=== PATIENT | female | born 1945 | race Caucasian/White ===

== ENCOUNTER 2019-01-28 13:00 | Outpatient (RCR) | payer OTHER, SELFPAY ==
--- NOTE | 2018-12-16 10:42 | PT.OIE ---
Current Diagnoses Other female genital prolapse (12/10/18) Full incontinence of feces (12/10/18) Provider Visit Care Team Role Provider Type Graciela Bales PA-C Primary Care Provider Non-Staff Specialty: Medical Address: [facility] [address], [place], [address] Email: Lona Tomas MD Attending Provider Physician Specialty: [employer] Address: [address] [place] [address] [address], [address] Email: [email or web address] Physical Therapy Initial Evaluation PT-OP-A Visit Information Start: 12/10/18 12:24 Freq: Status: Active Protocol: Document 12/10/18 12:15 [facility] (Rec: 12/11/18 14:28 [facility] [email or web address]) Out-Patient Physical Therapy Visit Information Visit Information Visit Type Initial Evaluation Visit Note 73 year old female with fecal incontinence and pelvic relaxation Visit Start Time 12:15 Visit Stop Time 13:00 Total Visit Minutes 45 Visit Number 1 Evaluation Information Evaluation Date 12/10/18 PT-OP-B Current Condition Start: 12/10/18 12:24 Freq: Status: Active Protocol: Document 12/10/18 12:24 [facility] (Rec: 12/10/18 12:40 [facility] [id number]) Current Condition History of Current Condition Onset Date last couple of years sx began History of Current Condition Fecal leakage only when stool is soft. The stool becomes the texture of pudding then she has difficulty. She takes physillium 1/4 teaspoon per day right now. At this consistency when she wipes there is stool . Wears a panty liner all the time for this. Changes her panty liner when she is changing her panty liner two times per day. Cant always feel when she is leaking. Does have urge to have a bowel movement. Feels some pressure from the rectum at times but she does have a pessary that really helps. She started using the pessary two years ago. She takes it out two time per week when using estrogen cream. Had pelvic floor surgery in 2006 PT-OP-I Pelvic Floor Start: 12/10/18 12:24 Freq: Status: Active Protocol: Document 12/10/18 12:15 [facility] (Rec: 12/11/18 14:28 [facility] [email or web address]) Pelvic Floor Assessment Urine Pelvic Floor Surgery Yes Bowel Bowel Surgery Yes Bowel Symptoms Fecal Leakage Bowel Movement Frequency 3 times per day [place] Stool Chart Comments stool is described as pudding consistency Pelvic Clock Pelvic Clock 6-9 Atrophy Pelvic Clock 9-12 Atrophy Inter-Rectal Assessment able to elicite a contraction of the rectal sphincter Prolapse Urethrocele Grade 2 Contraction Ability Voluntary Contraction Moderate Manual Muscle Testing Left 3 Manual Muscle Testing Right 3 Manual Muscle Testing Anterior 3 Manual Muscle Testing Posterior 3 Muscle Endurance (Seconds) 5 PT-OP-M Strength Start: 12/16/18 10:40 Freq: Status: Active Protocol: Document 12/10/18 12:15 [facility] (Rec: 12/16/18 10:42 [facility] [email or web address]) Hip Strength Hip Manual Muscle Testing Right Extension (S1) 3 Fair Abduction 3 Fair External Rotation 3 Fair Left Extension (S1) 3 Fair Abduction 3 Fair External Rotation 3 Fair Comments difficulty performing a functional squat PT-OP-Q Treatments Start: 12/10/18 12:24 Freq: Status: Active Protocol: Document 12/10/18 12:15 [facility] (Rec: 12/11/18 14:28 [facility] [email or web address]) Therapeutic Exercises Supine Exercises 3 Supine Exercise Name roll outs with theraband 2 Supine Exercise Name bridges Reps/Minutes 3 x 10 reps 1 Supine Exercise Name pelvic floor long holds Reps/Minutes 3 x 10 reps 10 second hold 10 second relaxation Sidelying Exercises 1 Sidelying Exercise Name sidelying clam shell exercise Side bilateral Reps/Minutes 3 x 10 reps Self-Care/Home Management Treatment Education Patient Education Home Exercise Program Other Education pt was educated on the use of a squatty potty to help assist with bowel movements PT-OP-T Assessment and Plan Start: 12/10/18 12:24 Freq: Status: Active Protocol: Document 12/10/18 12:15 [facility] (Rec: 12/11/18 14:28 [facility] [email or web address]) Physical Therapy Assessment Goals Four Impairment Decreased strength of the gluteals musculature 3/5 MMT Dope Sprayer Goal (LTG) Improve functional strength of the gluteal muscular for improved support of the pelvis and posterior pelvic floor. Tere is able to perform a functional squat without use of hands and good form LTG Duration 8 weeks Three Impairment Decreased strength of the pelvic floor 3/5 MMT Pen[facility]iary Goal (LTG) Improve pelvic floor strength to 4/5 MMT or better for improved support of the rectum LTG Duration 8 weeks Two Impairment Decreased endurance of the pelvic floor currently 5 second hold time Short Term Goal (STG) Improve pelvic floor hold time from 5 seconds to 10 seconds in supine Dope Sprayer Goal (LTG) Tere is able to improve her endurance of the pelvic floor to 10 second hold time in standing positions One Impairment stool incontinence with pelvic floor weakness Short Term Goal (STG) Tere is educated on toileting mechanics to assist in fully emptying her bowels. STG Duration 4 weeks Penitentiary Goal (LTG) Tere reports decreased c/o stool incontinence and she reports decreased or eliminated stool leakage overall. LTG Duration 8 weeks Assessment Summary Assessment Tere is a 73 year old female with c/o stool incontinence that is intermittent in nature depending on the consistency of her stool. 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 She reports her fecal symptoms have progressed in the past year. She describes her stool as often pudding like in consistency making it difficult to fully empty her bowels. She is using phyllium to assist her in improving the formation of her stool. Her leakage can vary in severity depending on the consistency of her stool. She wears mini pads daily for protection as she can not feel when she is going to leak. She does report the feeling of pelvic pressure and heavyness from the rectum. With examination today she is weak in the gluteal musculature and hips. She is able to facilitate her pelvic floor but is weak in all parts of the levator ani and lacks good endurance of her pelvic floor . A rectal examination was performed and Tere presents with good sensation in the rectum and the sphincter as well as is able to facilitate a sphincter contraction. Tere would benefit from a strengthening program including her gluteals and hip muscles and endurance training for her pelvic floor. I also talked with her today about bowel movements using a squatty potty as this may help align her bowels better for defecation. She has a high co pay and is hoping to do a few visits in PT focusing on a home exercise program. I am happy to work with her on a home program. Physical Therapy Plan Frequency and Duration Frequency of Treatment 1x/Week Duration of Treatment 8 weeks Plan of Care Start Date 12/10/18 Plan of Care End Date 02/04/19 Therapeutic Interventions Therapeutic Interventions Home Exercise Program Patient/Caregiver Education Self-Care/Home Management Soft Tissue Mobilization Therapeutic Exercises Modalities Biofeedback Next Visit Focus/Plan Next Note Type Treatment Note Next Visit Plan Review established exercises and begin working on hip stabilization
--- NOTE | 2018-12-18 10:30 | PT.OTN ---
Current Diagnoses Other female genital prolapse (12/17/18) Full incontinence of feces (12/17/18) Physical Therapy Treatment Note PT-OP-A Visit Information Start: 12/10/18 12:24 Freq: Status: Active Protocol: Document 12/17/18 11:30 [facility] (Rec: 12/18/18 10:30 [facility] [id number]) Out-Patient Physical Therapy Visit Information Visit Information Visit Type Treatment Note Visit Start Time 11:30 Visit Stop Time 12:15 Total Visit Minutes 45 Visit Number 2 Evaluation Information Evaluation Date 12/10/18 PT-OP-B Current Condition Start: 12/10/18 12:24 Freq: Status: Active Protocol: Document 12/10/18 12:24 [facility] (Rec: 12/10/18 12:40 [facility] [id number]) Current Condition History of Current Condition Onset Date last couple of years sx began History of Current Condition Fecal leakage only when stool is soft. The stool becomes the texture of pudding then she has difficulty. She takes physillium 1/4 teaspoon per day right now. At this consistency when she wipes there is stool . Wears a panty liner all the time for this. Changes her panty liner when she is changing her panty liner two times per day. Cant always feel when she is leaking. Does have urge to have a bowel movement. Feels some pressure from the rectum at times but she does have a pessary that really helps. She started using the pessary two years ago. She takes it out two time per week when using estrogen cream. Had pelvic floor surgery in 2006 PT-OP-C Subjective Start: 12/17/18 11:36 Freq: Status: Active Protocol: Document 12/17/18 11:37 [facility] (Rec: 12/17/18 11:39 [facility] [id number]) OP-PT Subjective Patient Comments Patient Comments Pt was started on cipro for a UTI, the next day had a bowel impaction problem and then had a bad attack of diverticulosis. She has been on soft food for the past couple of days and now constipated again. Woke up with cramping Patient Reported Progress Same PT-OP-I Pelvic Floor Start: 12/10/18 12:24 Freq: Status: Active Protocol: Document 12/10/18 12:15 [facility] (Rec: 12/11/18 14:28 [facility] [email or web address]) Pelvic Floor Assessment Urine Pelvic Floor Surgery Yes Bowel Bowel Surgery Yes Bowel Symptoms Fecal Leakage Bowel Movement Frequency 3 times per day [place] Stool Chart Comments stool is described as pudding consistency Pelvic Clock Pelvic Clock 6-9 Atrophy Pelvic Clock 9-12 Atrophy Inter-Rectal Assessment able to elicite a contraction of the rectal sphincter Prolapse Urethrocele Grade 2 Contraction Ability Voluntary Contraction Moderate Manual Muscle Testing Left 3 Manual Muscle Testing Right 3 Manual Muscle Testing Anterior 3 Manual Muscle Testing Posterior 3 Muscle Endurance (Seconds) 5 PT-OP-M Strength Start: 12/16/18 10:40 Freq: Status: Active Protocol: Document 12/10/18 12:15 [facility] (Rec: 12/16/18 10:42 [facility] [email or web address]) Hip Strength Hip Manual Muscle Testing Right Extension (S1) 3 Fair Abduction 3 Fair External Rotation 3 Fair Left Extension (S1) 3 Fair Abduction 3 Fair External Rotation 3 Fair Comments difficulty performing a functional squat PT-OP-Q Treatments Start: 12/10/18 12:24 Freq: Status: Active Protocol: Document 12/17/18 11:30 [facility] (Rec: 12/18/18 10:30 [facility] [id number]) Therapeutic Exercises Supine Exercises 6 Supine Exercise Name iliopsoas stretch in celi test position 5 Supine Exercise Name piriformis stretch 4 Supine Exercise Name quick pelvic floor contractions 3 Supine Exercise Name roll outs with theraband 2 Supine Exercise Name bridges Reps/Minutes 3 x 10 reps 1 Supine Exercise Name pelvic floor long holds Reps/Minutes 3 x 10 reps 10 second hold 10 second relaxation Sidelying Exercises 1 Sidelying Exercise Name sidelying clam shell exercise Side bilateral Reps/Minutes 3 x 10 reps Other Exercises 1 Other Exercise Name sit to stand with pelvic floor engagement Reps/Minutes x 10 Manual Therapy Treatment Soft Tissue Mobilization 1 Body Location ILU massage over the colon and abdominal wall Comments pt shown handout for self colon massage PT-OP-T Assessment and Plan Start: 12/10/18 12:24 Freq: Status: Active Protocol: Document 12/17/18 11:30 [facility] (Rec: 12/18/18 10:30 [facility] [id number]) Physical Therapy Assessment Assessment Summary Assessment pt could feel bowel sounds following massage, she would benefit from home self massage , good tolerance for ther ex today Physical Therapy Plan Frequency and Duration Frequency of Treatment 1x/Week Duration of Treatment 8 weeks Plan of Care Start Date 12/10/18 Plan of Care End Date 02/04/19 Next Visit Focus/Plan Next Note Type Treatment Note Next Visit Plan begin standing hip exercises
--- NOTE | 2019-01-29 10:21 | PT.OTN ---
Current Diagnoses Other female genital prolapse (01/28/19) Full incontinence of feces (01/28/19) Physical Therapy Treatment Note PT-OP-A Visit Information Start: 12/10/18 12:24 Freq: Status: Active Protocol: Document 01/28/19 13:00 [facility] (Rec: 01/29/19 10:21 [facility] [email or web address]) Out-Patient Physical Therapy Visit Information Visit Information Visit Type Treatment Note Visit Start Time 13:00 Visit Stop Time 13:45 Total Visit Minutes 45 Visit Number 3 Evaluation Information Evaluation Date 12/10/18 PT-OP-B Current Condition Start: 12/10/18 12:24 Freq: Status: Active Protocol: Document 12/10/18 12:24 [facility] (Rec: 12/10/18 12:40 [facility] [id number]) Current Condition History of Current Condition Onset Date last couple of years sx began History of Current Condition Fecal leakage only when stool is soft. The stool becomes the texture of pudding then she has difficulty. She takes physillium 1/4 teaspoon per day right now. At this consistency when she wipes there is stool . Wears a panty liner all the time for this. Changes her panty liner when she is changing her panty liner two tiems per day. Cant always feel when she is leaking. Does have urge to have a bowel movement. Feels some pressure from the rectum at times but she does have a pessary that really helps. SHe started using the pessary two years ago. SHe takes it out two time per week when using estrogen cream. Had pelvic floor surgery in 2006 PT-OP-C Subjective Start: 12/17/18 11:36 Freq: Status: Active Protocol: Document 01/28/19 13:00 [facility] (Rec: 01/29/19 10:21 [facility] [email or web address]) OP-PT Subjective Patient Comments Patient Comments Tere reports symptoms have been improving and she has decreased c/o fecal leakage. She did have a episode of fecal impaction this past month when she tried to discontine her phsillium husk. She is back to taking this now. She would like today to be her last visit as she feels she has her exercises down PT-OP-I Pelvic Floor Start: 12/10/18 12:24 Freq: Status: Active Protocol: Document 12/10/18 12:15 [facility] (Rec: 12/11/18 14:28 [facility] [email or web address]) Pelvic Floor Assessment Urine Pelvic Floor Surgery Yes Bowel Bowel Surgery Yes Bowel Symptoms Fecal Leakage Bowel Movement Frequency 3 times per day [place] Stool Chart Comments stool is described as pudding consistency Pelvic Clock Pelvic Clock 6-9 Atrophy Pelvic Clock 9-12 Atrophy Inter-Rectal Assessment able to elicite a contraction of the rectal sphincter Prolapse Urethrocele Grade 2 Contraction Ability Voluntary Contraction Moderate Manual Muscle Testing Left 3 Manual Muscle Testing Right 3 Manual Muscle Testing Anterior 3 Manual Muscle Testing Posterior 3 Muscle Endurance (Seconds) 5 PT-OP-M Strength Start: 12/16/18 10:40 Freq: Status: Active Protocol: Document 12/10/18 12:15 [facility] (Rec: 12/16/18 10:42 [facility] [email or web address]) Hip Strength Hip Manual Muscle Testing Right Extension (S1) 3 Fair Abduction 3 Fair External Rotation 3 Fair Left Extension (S1) 3 Fair Abduction 3 Fair External Rotation 3 Fair Comments difficulty performing a functional squat PT-OP-Q Treatments Start: 12/10/18 12:24 Freq: Status: Active Protocol: Document 01/28/19 13:00 [facility] (Rec: 01/29/19 10:21 [facility] [email or web address]) Therapeutic Exercises Supine Exercises 6 Supine Exercise Name iliopsoas stretch in celi test position 5 Supine Exercise Name piriformis stretch 4 Supine Exercise Name quick pelvic floor contractions 3 Supine Exercise Name roll outs with theraband 2 Supine Exercise Name bridges Reps/Minutes 3 x 10 reps 1 Supine Exercise Name pelvic floor long holds Reps/Minutes 3 x 10 reps 10 second hold 10 second relaxation Sidelying Exercises 1 Sidelying Exercise Name sidelying clam shell exercise Side bilateral Reps/Minutes 3 x 10 reps Other Exercises 2 Other Exercise Name standing hip abduction Reps/Minutes 2 x 10 reps 1 Other Exercise Name sit to stand with pelvic floor engagement Reps/Minutes x 10 Self-Care/Home Management Treatment Education Patient Education Home Exercise Program Other Education pt given handouts of home exercise program with pictures . PT-OP-T Assessment and Plan Start: 12/10/18 12:24 Freq: Status: Active Protocol: Document 01/28/19 13:00 [facility] (Rec: 01/29/19 10:21 [facility] [email or web address]) Physical Therapy Assessment Goals Four Impairment Decreased strength of the gluteals musculature 3/5 MMT Survey Operations Director Goal (LTG) Improve functional strength of the gluteal muscular for improved support of the pelvis and posterior pelvic floor. Tere is able to perform a functional squat without use of hands and good form LTG Duration GOOD PROGRESS Three Impairment Decreased strength of the pelvic floor 3/5 MMT Half-Way Goal (LTG) Improve pelvic floor strength to 4/5 MMT or better for improved support of the rectum GOOD PROGRESS LTG Duration 8 weeks Two Impairment Decreased endurance of the pelvic floor currently 5 second hold time Short Term Goal (STG) Improve pelvic floor hold time from 5 seconds to 10 seconds in supine GOAL MET Survey Operations Director Goal (LTG) Tere is able to improve her endurance of the pelvic floor to 10 second hold time in standing positions One Impairment stool incontinence with pelvic floor weakness Short Term Goal (STG) Tere is educated on toileting mechanics to assist in fully emptying her bowels. STG Duration 4 weeks Survey Operations Director Goal (LTG) Tere reports decreased c/o stool incontinence and she reports decreased or eliminated stool leakage overall. LTG Duration 8 weeks GOALS MET Progress Towards Goals Progress Towards Goals Progressing Toward Goals Assessment Summary Assessment Tere has shown progress with PT and feels independent with her home program at this time . She has a large copay and is unable to keep up weekly visits. She reports her symptoms have decreased and she has more control over her bowel movements. She will be discharged from PT at this time. Physical Therapy Plan Discharge Physical Therapy Discharge Reasons Patient Request Discharge Comments Pt felt independent with her home exercise program and due to large co-pays has decided to hold off on further PT
== END 2019-01-30 09:14 | disposition home or self-care (01) ==
LOC: PHYS 13:00
PROVIDERS: PCP Physician Assistant Medical; Visit Provider Obstetrics & Gynecology
DX: R15.9 Full incontinence of feces (principal); N81.89 Other female genital prolapse
CPT/HCPCS: 97110; 97140; 97162; 97535

== ENCOUNTER → 2024-05-15 09:45 | Outpatient (CLI) | payer OTHER, SELFPAY | PROVIDERS: Referring Provider Internal Medicine Critical Care Medicine; Visit Provider Internal Medicine Critical Care Medicine | DX: J18.9 Pneumonia, unspecified organism (principal); Z87.01 Personal history of pneumonia (recurrent); Z87.898 Personal history of other specified conditions; Z87.891 Personal history of nicotine dependence; R94.2 Abnormal results of pulmonary function studies | CPT/HCPCS: 94060; 94726; 94729 ==